=== PATIENT | male | born 1945 | race Caucasian/White ===

== ENCOUNTER 2017-03-31 21:00 | Inpatient (IN) | payer MEDICARE ==
[~2017-03-31] VITALS: Ht 165.1 cm; Wt 81.0 kg
--- NOTE | ~2017-03-31 | CON ---
PATIENT'S NAME: MAT NGUYEN [facility] AGE: 71 Y [address] ROOM: [place] [address] LOCATION: GPCU ADMIT DATE: 03/31/2017 Consultation DISCHARGE DATE: FAMILY PHYSICIAN: Nanda Hampton MD ATTENDING PHYSICIAN: LEDY PAREDES DATE OF CONSULTATION: 04/07/2017 REFERRING PHYSICIAN: STEPH KELLER MD REASON FOR CONSULTATION: 19 mm nodule in the left lung base. HISTORY OF PRESENT ILLNESS: A 71-year-old male with past medical history of COPD, being on home oxygen several years ago, follows up with [facility] CPAP and other oxygen needs, obstructive sleep apnea on CPAP, chronic kidney disease, congestive heart failure, diabetes, was admitted a few days before with healthcare associated pneumonia and acute on chronic hypoxic respiratory failure. He has improved symptomatically with current medical management. A CT scan of his chest showed 19 mm nodular opacity in the posterior lateral left costophrenic sulcus, it did not show any infiltrate. Pulmonary consult was called to evaluate this nodule. On further questioning, the patient stated that he had a lung biopsy done in [place] several years ago, but he does not remember it was from which side of the lung, but he definitely remembers that he was told he has scarring of his lung tissue. He has all these records with his PCP Dr. Nanda Hampton in [place]. Currently, he has not been on oxygen at home during day or during nighttime. He has been using CPAP at home regularly. REVIEW OF SYSTEMS: Respiratory: On oxygen, required CPAP for obstructive sleep apnea, denies any excessive cough, fever, sputum production, at present. CARDIOVASCULAR: Denies any excessive chest pain, palpitations, or syncope. All other systems were reviewed and negative except what is mentioned above. ALLERGIES: PLEASE SEE MAR. PAST MEDICAL HISTORY: 1. Atrial fibrillation. 2. Congestive cardiac failure. 3. COPD. 4. Obstructive sleep apnea on CPAP. 5. Chronic kidney disease. PATIENT'S NAME: MAT NGUYEN [facility] AGE: 71 Y [address] ROOM: [place] [address] LOCATION: GPCU ADMIT DATE: 03/31/2017 Consultation DISCHARGE DATE: FAMILY PHYSICIAN: Nanda Hampton MD ATTENDING PHYSICIAN: LEDY PAREDES 6. Diabetes. SOCIAL HISTORY: The patient has never smoked. 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 FAMILY HISTORY: Nothing significant. PHYSICAL EXAMINATION: VITAL SIGNS: Temperature 98.4, pulse 62, respirations 16, blood pressure 150/73, saturation 91% with 1 L of oxygen. GENERAL: In no acute distress. CHEST: Bilateral equal air entry. No rhonchi or crepitations. CARDIOVASCULAR: Regular S1, S2. No murmurs, rubs, or gallops. ABDOMEN: Soft, nontender, nondistended. Bowel sounds positive. EXTREMITIES: No edema. SKIN: Excoriations seen on bilateral lower extremities with pigmentation. LABS: ABG done on 04/04/2017, showed pH of 7.46, pCO2 47, PO2 67. CBC showed WBC 8.7, hemoglobin 12.5, hematocrit 38.5, platelet 171. CMP: Sodium 141, potassium 3.7, chloride 104, bicarb 30, BUN 30, creatinine 1.5. IMAGING: Chest x-ray on 04/04/2017 did not show any infiltrate. CT scan of chest did not show any infiltrate, showed 19 mm nodular opacity in the posterolateral left costophrenic sulcus. Spirometry showed an FEV1 was 1.54 L, 60% of predicted which is low; FVC was 2.11 L, 60% which is low; FEV1/FVC was 72%, which is normal. This suggests possible restrictive changes. Further assessment with measurement of lung volumes was recommended with a full PFT and there was no evidence of significant bronchodilator response. PROBLEM LIST: 1. Acute on chronic hypoxic respiratory failure. 2. COPD exacerbation. 3. Pulmonary nodule. 4. Restrictive changes on spirometry. PATIENT'S NAME: MAT NGUYEN [facility] AGE: 71 Y [address] ROOM: [place] [address] [facility] ADMIT DATE: 03/31/2017 Consultation DISCHARGE DATE: FAMILY PHYSICIAN: Nanda Hampton MD ATTENDING PHYSICIAN: LEDY PAREDES 5. Obstructive sleep apnea on CPAP. PLAN: 1. The patient states he had lung biopsy several years ago in [place], does not remember from which side of the lung, but he definitely remembers that he was told that he has scarring of his lung tissue. We will try to obtain all the medical records from Dr. Nanda Hampton, his PCP, at [place] before scheduling any further imaging. 2. Chronic respiratory failure. Home oxygen evaluation showed need for 1 L/min of oxygen with rest. 3. Restrictive changes in spirometry. Needs assessment of lung volumes with full PFT. 4. Obstructive sleep apnea on CPAP. He receives supplies from [place]. We will need to review the CPAP download. Thank you for consulting Pulmonary. The patient is getting discharged today, recommended to follow up in Pulmonary Clinic upon discharge within two weeks with all the medical records. MD CARTER RUIZ/mirela /[id number] d: 04/07/17 1503 t: 04/08/17 1743, CONSULTATION REPORT
--- NOTE | ~2017-03-31 | HP ---
PATIENT'S NAME: MAT NGUYEN [facility] AGE: 71 Y [address] ROOM: [address] [place], [place] [address] LOCATION: GPCU ADMIT DATE: 03/31/2017 History & Physical DISCHARGE DATE: FAMILY PHYSICIAN: Nanda Hampton MD ATTENDING PHYSICIAN: LEDY PAREDES DATE OF SERVICE: CHIEF COMPLAINT: Shortness of breath. HISTORY OF PRESENT ILLNESS: A 71-year-old gentleman with the multiple advanced comorbidities presented to the [facility] from a nursing facility after having increased shortness of breath, cough, and sputum production for past couple of days. Initially, in the morning, he presented to the primary care physician and was put on Zithromax. Later during the day, his condition got worse, and he was taken to the emergency department over there, where the chest x-ray was done, which did reveal a left-sided developing pneumonia, and he was found to be in hypoxic respiratory failure requiring 5 L of oxygen more than his usual requirements. He was transferred here because of the lack of bed availability at [place]. On my encounter, he appears comfortable, but coughing a lot without any sputum production. He says that he had been short of breath for a past couple of days and this got worse. He also reported that he fell couple of times this morning without hitting his head. He is not a reliable historian at this point. On further inquiry, he denied that he is having any chest pain, any palpitation, any headache, but did endorse he is having cough, sputum production, and have fever in the morning and he is still shaky. He denied any abdominal pain, any constipation, diarrhea, or extremity swelling. REVIEW OF SYSTEMS: All other systems reviewed and were negative except what is mentioned in the HPI. ALLERGIES: THE PATIENT DID NOT REPORT ANY MEDICAL ALLERGIES. PAST MEDICAL HISTORY: Atrial fibrillation, on oral anticoagulation; also, has a history of DVT, congestive heart failure, unknown ejection fraction, COPD, chronic respiratory failure with supplemental home oxygen, insulin-dependent diabetes mellitus, hyzdikx-et-esrlgd, hyperlipidemia, hypertension, obstructive sleep apnea, CKD, unknown stage, coronary artery disease, and also has a pacemaker. MEDICATIONS: PATIENT'S NAME: MAT NGUYEN [facility] AGE: 71 Y [address] ROOM: [address] [address] LOCATION: GPCU ADMIT DATE: 03/31/2017 History & Physical DISCHARGE DATE: FAMILY PHYSICIAN: Nanda Hampton MD ATTENDING PHYSICIAN: LEDY PAREDES Being reconciled right now. SOCIAL HISTORY: No ongoing toxic habits reported. FAMILY HISTORY: Reviewed and was unrelated to the current presenting problems. PHYSICAL EXAMINATION: VITAL SIGNS: He was satting 95% on 5 L of oxygen. Blood pressure 147/70, respiratory rate 20, and heart rate 75. GENERAL: No acute distress. Alert and oriented x2 only. HEENT: Head: Atraumatic, normocephalic. Eyes: Nonicteric. No pallor. Oropharynx: Very dry mucous membranes. CARDIOVASCULAR: S1, S2. No murmurs, gallops, or rubs. LUNGS: Scattered crackles on the left-side. No expiratory wheezes appreciated. ABDOMEN: Soft, nontender, nondistended. Bowel sounds are present. EXTREMITIES: No clubbing, cyanosis, or edema. SKIN: Left juarez superficial abrasion noted. No blemishes, scar cifuentes noted. PSYCH: Flat and low volume speech. NEURO: Cranial nerves 2 through 12 are intact. No motor or sensory deficit. MUSCULOSKELETAL: No muscle tenderness or joint swelling noted. LABORATORY DATA: Chest x-ray from the outside facility as mentioned above showed developing left lower lobe pneumonia. BNP done at outside facility showed 151, INR was therapeutic at 2.9, and procalcitonin 0.07. CBC was unremarkable. BMP was impressive for a BUN of 37 and a creatinine of 1.8. ASSESSMENT: 1. Kjvha-sw-dhkcfyt hypoxic respiratory failure. 2. Healthcare-associated pneumonia. 3. Acute kidney injury with known chronic kidney disease. 4. Congestive heart failure with unknown ejection fraction, not in acute exacerbation. 5. Insulin-dependent diabetes mellitus. 6. Acute metabolic encephalopathy. 7. Hypertension. 8. Atrial fibrillation. 9. Obstructive sleep apnea. 10. Chronic respiratory failure. 11. Chronic obstructive pulmonary disease. PLAN: PATIENT'S NAME: MAT NGUYEN [facility] AGE: 71 Y [address] ROOM: [address] [address] LOCATION: GPCU ADMIT DATE: 03/31/2017 History & Physical DISCHARGE DATE: FAMILY PHYSICIAN: Nanda Hampton MD ATTENDING PHYSICIAN: LEDY PAREDES We are going to admit this patient to inpatient at this point. Blood cultures have been drawn at the outside facility. We are going to obtain sputum cultures and urine streptococcal Legionella antigen. Given that he lives in a nursing facility, we will initially start with a broad-spectrum antibiotics including Zyvox, Zosyn, and Levaquin and deescalate as needed. He appears very dry on my physical examination and I am going to hydrate him cautiously with LR bolus of 500 and then running at 125 mL/hr. Acute kidney injury on unknown chronic kidney disease, stage 3. We will monitor the creatinine at this point and obtain urine electrolytes. We will reduce his home dose of insulin to half and monitor his blood glucose with Accu-Cheks and with sliding scale insulin. Hypertension will be monitored and once home medications are reconciled we will resume those. Atrial fibrillation appears to be controlled at this point. He is on oral anticoagulation. Interestingly, I was notified that he had history of subdural hematomas about 4 months ago, which were treated at [facility]. I will obtain the discharge summary for [facility] and hold the blood anticoagulation until we get that. His INR is therapeutic at this point at 2.9. We will continue to monitor that and resume oral anticoagulation as necessary. We will put the patient on fall and seizure precautions. DuoNebs. He continue home dose of salmeterol. Further recommendations will depend on his progress in the hospital. MD REHAN MEDEROS/maribell /[id number] D: 307 T: 740 HISTORY & PHYSICAL
--- NOTE | ~2017-03-31 | DS ---
PATIENT'S NAME: MAT NGUYEN [facility] AGE: 71 Y [address] ROOM: [place] [address] LOCATION: GPCU ADMIT DATE: 03/31/2017 Discharge Summary DISCHARGE DATE: 04/08/2017 FAMILY PHYSICIAN: Nanda Hampton MD ATTENDING PHYSICIAN: Pebbles Melo ADDENDUM: His discharge was delayed due to an increasing creatinine, went up to 2.6 yesterday, and Dr. Banks asked that we keep him here 1 extra day. We held his Lasix, creatinine is down at 2.3; so, he is discharged today with parameters unchanged from our discharge plan yesterday. MD NICANOR QUEZADA/maribell /[id number] d: 04/09/17 05 t: 04/09/17 1751, DISCHARGE SUMMARY
--- NOTE | ~2017-03-31 | PUL ---
PATIENT'S NAME: MAT NGUYEN [facility] AGE: 71 Y [address] ROOM: [place] [address] LOCATION: GPCU ADMIT DATE: 03/31/2017 Pulmonary DISCHARGE DATE: FAMILY PHYSICIAN: Nanda Hampton MD ATTENDING PHYSICIAN: LEDY PAREDES NAME OF PROCEDURE: Bedside Spirometry DATE OF PROCEDURE: April 05, 2017 TECH: ED Trevino REASON FOR EXAM: Shortness of breath PROCEDURES PERFORMED: Spirometry with bronchodilator assessment. RESULTS: Pre bronchodilator FEV1 was 1.54 liters, 60% of predicted.; post- bronchodilator FEV1 was 1.66 liters, 68% predicted. Pre bronchodilator FVC was 2.11 liters, 60% predicted; post bronchodilator FVC was 2.22 liters or 65% of predicted. FEV1/FVC was 72, 99% of predicted. This data did not change significantly after administration of bronchodilator. Flow volume loops pattern normal. PHYSICIAN INTERPRETATION: No evidence of airflow obstruction. Both FEV1 and FVC are reduced with no significant bronchodilator response. Measurement of lung volumes with full PFT will be recommended to rule out restrictive changes. MD CARTER RUIZ/perico /[id number] dtt: 04/08/17 1740 , STEPH KELLER dtd: 04/07/17 1238
--- NOTE | ~2017-03-31 | CON ---
PATIENT'S NAME: MAT NGUYEN [facility] AGE: 71 Y [address] ROOM: [id number] [place], [place] [address] LOCATION: GPCU ADMIT DATE: 03/31/2017 Consultation DISCHARGE DATE: FAMILY PHYSICIAN: Nanda Hampton MD ATTENDING PHYSICIAN: LEDY PAREDES DATE OF CONSULTATION: 04/02/2017 REFERRING PHYSICIAN: Jenni Henley MD REASON FOR CONSULTATION: [place] versus CKD and shortness of breath. HISTORY OF PRESENT ILLNESS: A 71-year-old gentleman with history of insulin-dependent diabetes; chronic atrial fibrillation, on long-term anticoagulation; diastolic heart failure; COPD; chronic respiratory failure with supplemental oxygen; obesity hypoventilation syndrome/obstructive sleep apnea; sick sinus syndrome, status post pacemaker implantation; coronary artery disease; and possible CKD of unknown stage, admitted with hypoxic respiratory failure, requiring 5 L of oxygen. Chest x-ray appears to be fairly benign, but found to have some evidence of fluid overload status on modest dose of diuretic. Creatinine on admission was 1.7 with unknown baseline. Nephrology consultation has been called for evaluation of renal insufficiency. The patient apparently is from [facility] where he had increased shortness of breath, cough, and sputum production for the last few days. He first went to his primary care physician and was started on Zithromax, but his condition got worse afterwards, went to the emergency department. Chest x-ray was done, apparently the report said there was left- sided developing pneumonia and was requiring increasing amount of oxygen, transferred to our hospital for further evaluation and management. The chest x-ray here he looks okay with some mild bibasilar atelectasis, but no significant infiltrate; however, the patient was started on Zosyn and Zyvox for possible healthcare-associated pneumonia. As mentioned above, creatinine on admission was 1.7. The patient carries a diagnosis of heart failure, but without any recent echocardiogram. An echocardiogram, which was done yesterday shows normal ejection fraction of 55%-60%, but grade 1 diastolic dysfunction. The patient also has increased JVD and bibasilar crackles along with some wheezing in bilateral lung escamilla. The patient also has some dependent edema. The patient has been started on Lasix 20 mg IV b.i.d. as per the primary care physician, we will continue for the same. During my evaluation, the patient appears to be comfortable, now oxygen requirement has gone down to 1 L. He denied any significant chest pain or palpitation. No fever or headache. The patient is still having occasional cough with sputum production. No abdominal pain, nausea, vomiting, or diarrhea. No urinary symptoms. REVIEW OF SYSTEMS: GENERAL: No fever. No chills or rigor. HEENT: No sore throat. No sinus congestion. CVS: Shortness of breath, both at rest and on exertion. No chest pain. No palpitation. RESPIRATORY: Increased cough with sputum production as mentioned in HPI. GENITOURINARY: No pain with urination. No increased frequency. No nocturia. GASTROINTESTINAL: No abdominal pain. No abdominal distention. No nausea or vomiting. NEUROLOGIC: No weakness. No seizures. SKIN: No rash. No itching. ALLERGIES: No seasonal allergy. No hayfever. ENDOCRINE: No heat intolerance. No cold intolerance. PSYCHIATRIC: No sadness. No crying spells. No history of panic attack. EXTREMITIES: Mild swelling in bilateral lower extremities. PATIENT'S NAME: MAT NGUYEN [facility] AGE: 71 Y [address] ROOM: [place] [address] [facility] ADMIT DATE: 03/31/2017 Consultation DISCHARGE DATE: FAMILY PHYSICIAN: Nanda Hampton MD ATTENDING PHYSICIAN: LEDY PAREDES PAST MEDICAL HISTORY: 1. Atrial fibrillation, on long-term anticoagulation. 2. Diastolic heart failure. 3. COPD. 4. Chronic respiratory failure with supplemental home oxygen. 5. Insulin-dependent diabetes mellitus. 6. Hyperlipidemia. 7. Hypertension. 8. Osteopenia. 9. CKD, unstaged. 10. Coronary artery disease. 11. Sick sinus syndrome, status post pacemaker implantation. PAST SURGICAL HISTORY: Had multiple cardiac catheterizations in the past. SOCIAL HISTORY: Denied smoking, alcohol, or IV drug use. FAMILY HISTORY: No significant family history of kidney disease or diabetes. MEDICATIONS: As per the chart. PHYSICAL EXAMINATION: VITAL SIGNS: Blood pressure 130s/60s, pulse 70, respiratory rate 20, saturation 96%-98% on 1 L, and temperature 97.4. GENERAL: Not in apparent distress. HEAD: Moist mucous membranes. Bilateral PERRLA, EOMI. NECK: No JVD, thyromegaly, or lymphadenopathy. CVS: S1-S2 positive. Irregular rate and rhythm. No murmurs, rubs, or gallops. CHEST: Bilateral wheeze with occasional crackles, especially in the bilateral bases. Air entry equal. ABDOMEN: Soft, nontender, nondistended. Bowel sounds present. EXTREMITIES: Peripheral pulses positive. Peripheral edema 1+. No cyanosis, clubbing, or jaundice. MUSCULOSKELETAL: No limitation of range of motion. SKIN: No pallor, cyanosis, or icterus. FLOWER PLANTER: Alert and oriented x3. No gross findings. LABORATORY DATA: WBC count 6, hemoglobin 10.3, platelets 122. Chemistry: Sodium 142, potassium 4, chloride 110, BUN 31, creatinine 1.7, glucose 184, calcium 7.4, A1c 7.5. INR 1.85.PATIENT'S NAME: MAT NGUYEN [facility] AGE: 71 Y [address] ROOM: [place] [address] LOCATION: GPCU ADMIT DATE: 03/31/2017 Consultation DISCHARGE DATE: FAMILY PHYSICIAN: Nanda Hampton MD ATTENDING PHYSICIAN: LEDY PAREDES ASSESSMENT AND PLAN: 1. Acute kidney injury on chronic kidney disease versus chronic kidney disease although we do not have a baseline creatinine or chronic kidney disease stage. The patient used to follow with Dr. Weir at [facility] in the past, now follows with Dr. Joseph. We will try to get all the records from his office. If the patient's creatinine is slightly up, then his baseline is presumably secondary to cardiorenal syndrome type 1 with decompensated diastolic heart failure. We agree with the primary team about the modest dose loop for now, strict intake and output, total fluid restriction of 1.2 L. We will check urinalysis and urine lytes including sodium, creatinine, osmolality, and urine urea to calculate FENa and FEUrea. We will do a renal panel now and daily. We will do a renal ultrasound to look at renal morphology, cortical echotexture, and corticomedullary differentiation. 2. Shortness of breath/hypoxic respiratory failure, possibly secondary to decompensated diastolic heart failure along with chronic obstructive pulmonary disease exacerbation. Diuresis as mentioned in #1. The patient was placed on antibiotic, but now primary team is deescalating slowly as chest x-ray did not show any significant infiltrate, we agreed with that. Continue current antibiotic regimen. 3. Decompensated heart failure. The patient was on Lasix 60 mg p.o. daily at home, currently set on 40 IV. We may need to adjust the diuretic dosing as necessary. 4. Atrial fibrillation, on long-term anticoagulation. INR is subtherapeutic. I will defer Coumadin management as per the primary. 5. Sick sinus syndrome, status post permanent pacemaker implantation. 6. Diabetes, type 2. Blood sugar relatively uncontrolled now, A1c is also 7.5, need stricter control of blood sugar and A1c. Defer to primary team about further management of diabetes. 7. Hypertension. Currently, blood pressure is adequately controlled. Was on Coreg at home along with Lasix 60. Continue home antihypertensive medications for now. Thank you for allowing me to participate in this patient's care. I will closely monitor the patient's progress along with you. [facility] CHELSI AMBRIZ MD /modl /[id number] CC: Ross Joseph MD d: 04/02/17 1820 t: 04/04/17 1032, CONSULTATION REPORT
--- NOTE | ~2017-03-31 | ECHO ---
Transthoracic Echocardiography Report (TTE) Demographics Patient Name MAT NGUYEN Date of Study 04/01/2017 Patient Number [id number] Visit Number [id number] Date of 1945 Room Number G6304 Accession Number [id number] Gender Male Age 71 year(s) Referring Memo Vee MD Rn Clinical Sherlyn Pinzon [facility], Physician Lory Arteaga RVT LORY ARTEAGA Physician Interpreting Josse Hathaway [employer] Cutter Machine Physician A MD Supervising Ordering Physician Lory Arteaga MD/MLP Nurse Stress Field Consultant Conclusions Summary The estimated left ventricular ejection fraction is 50-55% with the use of Definity. Mild to moderate concentric left ventricular hypertrophy. Diastolic assessment reveals Grade I diastolic dysfunction. Mild to moderately dilated right ventricle. Device lead noted in the right ventricle. Mild mitral regurgitation by color Doppler. Mild mitral annular calcification. Mild tricuspid regurgitation by color Doppler. The tricuspid valve is not well visualized. Procedure Type of Study TTE procedure:2D Echocardiogram. Procedure Date Date: 04/01/2017 Start: 02:13 PM Study Location: Inpatient Portable Technical Quality: Limited visualization due to lung interference. Indications:Dyspnea/SOB. Appropriate Use Criteria: 9 Patient Status: Routine Contrast Medium: Definity. Amount - 2 ml Rhythm: Within normal limits HR: 65 bpm BP: 127/58 mmHg M-Mode/2D Measurements LV Diastolic Dimension: 4.6 cm LV Systolic Dimension: 3.39 cm LV Septum Diastolic: 1.65 cm LV PW Diastolic: 1.54 cm AO Root Dimension: 2.8 cm Cardiac Output: 5.15 l/min LA Dimension: 3.31 cm LVOT: 2.1 cm IVC Inspiration: 0.7 cm LVOT VTI: 22.9 cm RV Base: 4.31 cm LV Stroke volume: 79.28 ml RV Length: 6.18 cm TAPSE: 2.14 cm Doppler Measurements AV Peak Velocity: 1.45 m/s MV Peak E-Wave: 0.71 m/s AV Peak Gradient: 8.41 mmHg MV Peak A-Wave: 1.02 m/s AV Mean Gradient: 4 mmHg MV E/A Ratio: 0.7 LVOT Peak Velocity: 0.87 m/s MV P1/2t: 116 msec TR Gradient:30.03 mmHg PV Peak Velocity: 1.45 m/s Estimated RAP:3 mmHg PV Peak Gradient: 8.41 mmHg Estimated RVSP: 33 mmHg Estimated PASP: 33.03 mmHg E' Septal Velocity: 0.05 m/s A' Septal Velocity: 0.11 m/s E' Lateral Velocity: 0.06 m/s A' Lateral Velocity: 0.12 m/s MV E/E' Ratio: 13.5 Findings Left Ventricle The estimated left ventricular ejection fraction is 50-55%. Mild to moderate concentric left ventricular hypertrophy. Diastolic assessment reveals Grad Apical hypokinesis in some views Right Ventricle Mild to moderately dilated right ventricle. Device lead noted in the right ventricle. Left Atrium The left atrium is mildly dilated. Right Atrium Normal right atrial size. Mitral Valve Mild mitral regurgitation by color Doppler. Mild mitral annular calcification. Aortic Valve The aortic valve is mildly sclerotic. Tricuspid Valve Mild tricuspid regurgitation by color Doppler. The tricuspid valve is not well visualized. Pulmonic Valve The pulmonic valve is not well visualized. Pericardial Effusion No evidence of pericardial effusion. Miscellaneous Visualized portions of the aortic root and ascending aorta appear normal in size. Pleural Effusion No evidence of pleural effusion. Signature dtt: Rachelle Loaiza dtd: 04/01/17 1413 Physician Self Edit
--- NOTE | ~2017-03-31 | DS ---
PATIENT'S NAME: MAT NGUYEN [facility] AGE: 71 Y [address] ROOM: G6304 [place], [place] [address] LOCATION: GPCU ADMIT DATE: 03/31/2017 Discharge Summary DISCHARGE DATE: FAMILY PHYSICIAN: Nanda Hampton MD ATTENDING PHYSICIAN: Pebbles Melo DISCHARGE DIAGNOSES: 1. Exacerbation of chronic obstructive pulmonary disease. 2. Acute on chronic hypoxic respiratory failure associated with his COPD exacerbation. 3. Acute on chronic diastolic congestive heart failure. 4. 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 5. Acute kidney injury on chronic renal failure. 6. Atrial fibrillation, on long-term anticoagulation. 7. Diabetes mellitus type 2, under fair control. REASON FOR ADMISSION: He is admitted with hypoxia and dyspnea, required 5 L of oxygen at that time. There was at least initially evidence of some fluid overload due to his diastolic congestive heart failure. Latest CT showed an indeterminate nodular opacity in the posterior lateral left base. There is evidence that he has had a biopsy previously. We do not know if it is for this lesion, but Dr. Rivas felt that she could wait and follow up on this as an outpatient when she had those records and could make a better determination as to the acuity of this mass. LABORATORY STUDIES: Blood sugars have been anywhere from 107 to 429, so very labile. His last white count was 87 with normal hemoglobin and platelets. The last laboratory for chemistry showed creatinine 2.3 with a BUN 62, sodium 140, potassium 3.8. Chloride and CO2 were normal. Pro-time from yesterday showed INR therapeutic at 2.02 and GFR yesterday was 27. HOSPITAL COURSE: Hospital course has been one of gradual improvement. It has been difficult adjusting his diuretic dose and his creatinine has been up and down, but Dr. Rivas will follow that on an outpatient basis. He had labs scheduled for this morning, but those results are pending. Reference is made to them when they show. Diet will be ad felix. Meds will be per nursing med recon. I have asked Nephrology to adjust the dosage of his Lasix to their liking. Activity will be ad felix. He is going home on oxygen as he continues to need 1 L. We have tried to take him off oxygen a couple of times and he goes into the 70s or 80s for SaO2. Followup will be initially with Dr. Rivas from Pulmonary, or Wednesday, April 22 or . He will need follow up with his primary physician in PATIENT'S NAME: MAT NGUYEN [facility] AGE: 71 Y [address] ROOM: G6304 [place], [place] [address] [facility] ADMIT DATE: 03/31/2017 Discharge Summary DISCHARGE DATE: FAMILY PHYSICIAN: Nanda Hampton MD ATTENDING PHYSICIAN: Pebbles Melo in 1 week to check INR and kidney function at that time. Note that on physical exam today, he still had occasional wheezes, but his heart was regular. Belly was soft. He was smiling and ready to go home. Discharge time was greater than 30 minutes. MD NICANOR QUEZADA/modoumou /[id number] d: 04/08/17 0638 t: 04/09/17 1749, DISCHARGE SUMMARY
[2017-03-31] MEDS ORDERED: LIPITOR80 MG PO (22:09)
[2017-03-31] MEDS ORDERED: PROVENTIL OR V6.7 GM INH (22:09)
[2017-03-31] MEDS ORDERED: ATROPINE 0.01%-10 ML OPHTH (22:10)
[2017-03-31] MEDS ORDERED: ZITHROMAX250 MG PO (22:11)
[2017-03-31] MEDS ORDERED: DEPAKOTE DELAY500 MG PO (22:12)
[2017-03-31] MEDS ORDERED: COREG25 MG PO (22:12)
[2017-03-31] MEDS ORDERED: SYMBICORT 16010.2 GM INH (22:12)
[2017-03-31] MEDS ORDERED: RAZADYNE4 MG PO (22:13)
[2017-03-31] MEDS ORDERED: GUAIFENESIN400 MG PO (22:14)
[2017-03-31] MEDS ORDERED: IMDUR60 MG PO (22:15)
[2017-03-31] MEDS ORDERED: LANTUS (IN100 UNIT/M SUB-Q (22:16)
[2017-03-31] MEDS ORDERED: KEPPRA500 MG PO (22:16)
[2017-03-31] MEDS ORDERED: LASIX40 MG PO (22:18)
[2017-03-31] MEDS ORDERED: LEVOTHROID (SY50 MCG PO (22:18)
[2017-03-31] MEDS ORDERED: NOVOLOG100 UNIT/M SUB-Q (22:19)
[2017-03-31] MEDS ORDERED: NITROSTAT0.4 MG SL (22:19)
[2017-03-31] MEDS ORDERED: PRED FORTE 1%5 ML OPHTH (22:20)
[2017-03-31] MEDS ORDERED: PROTONIX40 MG PO (22:20)
[2017-03-31] MEDS ORDERED: SPIRIVA HANDIHA1 KIT INH (22:21)
[2017-03-31] MEDS ORDERED: ZOLOFT100 MG PO (22:21)
[2017-03-31] MEDS ORDERED: RANEXA ER500 MG PO (22:21)
[2017-03-31] MEDS ORDERED: VITAMIN B-12500 MCG PO (22:22)
[2017-03-31] MEDS ORDERED: TYLENOL325 MG PO (22:22)
[2017-03-31] MEDS ORDERED: COUMADIN **IA2.5 MG PO ×2 (22:23→22:24)
--- NOTE | 2017-03-31 23:38 | NUR ---
Patient is direct admit from [place]. History of Dementia, COPD, Brain Bleed, Pacemaker, HTN, AFIB, Sleep Apnea, and recent falls. Patient was kemi in to [facility] ER by with increased SOB. Had fallen once on Wednesday and once today prior to ER visit. Upon arrival to ER, patient had fever of 101.8, BNP of 151, requiring 5L NC, and found to have pneumonia in left lower lobe. Received 750ml Levofloxacin, 2L Normal Saline, and Albuterol treatment in [facility] before being transfered to [facility]. Patient arrived at 2145 per ambulance. Vitals were: HR 67, Temp 98.3, RR 24, BP 141/58, MAP 84, O2 96% 5L NC. Dr. Melo admitting.
[2017-04-01 03:42] LABS: BASOPHIL % 0.2 %; EOSINOPHIL % 0.3 %; HEMATOCRIT 32.1 % (37.0-53.0); HEMOGLOBIN 10.3 g/dL (11.0-16.0); IMMATURE GRANULOCYTE % 0.5 %; LYMPHOCYTE # 0.6 K/uL (0.8-4.0); LYMPHOCYTE % 9.3 %; MCH 32.7 pg (27.0-34.0); MCHC 32.1 gm/dL (32.0-36.5); MCV 101.9 fl (83.0-98.0); MONOCYTE # 0.9 K/uL (0.0-1.0); MONOCYTE % 14.2 %; MPV 9.7 fl (9.4-12.4); NEUTROPHIL # (ANC) 4.6 K/uL (1.4-9.0); NEUTROPHIL % 75.5 %; NRBC % 0 /100WBC (0-0.00); PLATELET COUNT 122 K/uL (150-450); RBC 3.15 M/uL (3.50-5.50); RDW-CV 15.9 % (11.9-14.6)
[2017-04-01 03:54] LABS: INR - (THERAPEUTIC) 2.65 (0.92-1.07); PROTIME 28.1 SECONDS (9.8-11.4)
[2017-04-01 03:59] LABS: CREATININE 1.7 mg/dL (0.6-1.3)
[2017-04-01 04:00] LABS: CALCIUM 7.4 mg/dL (8.5-10.5)
[2017-04-01] MEDS ORDERED: ZYLOPRIM300 MG PO (11:22)
[2017-04-01] MEDS ORDERED: ARTIFICIAL TEAR15 ML OPHTH (11:24)
[2017-04-01] MEDS ORDERED: CARAFATE1 GM PO (11:35)
[2017-04-01] MEDS ORDERED: GLUCOPHAGE XR500 M1 PO (11:40)
--- NOTE | 2017-04-01 11:40 | NUR ---
Introduced self and role of care management to pt. He lives in [place] with his and has 2 sons 17 and 23 year old. He states he uses a walker at home and the steps his has to help him get up. He states once he is up he does well and can fix his own lunch. He showers but likes to be around or one of the son's. He states he is is setting up his meds now and he just finished with home health care. I did ask about oxygen and he does not wear it at home. He plans on home when ready for discharge and denies the need for hhc at this time. WIll continue to follow.
--- NOTE | 2017-04-01 11:41 | NUR ---
PT SCREENED D/T (+) MST. PT STATES HIS APPETITE IS GOOD, ATE 100% AT BF. DOES NOT RECALL LOSING ANY WT RECENTLY. BMI IN OBESE RANGE. BASED ON CURRENT DATA, NO NUTRITION-RELATED DIAGNOSIS IDENTIFIED. WILL ASSIST NEEDED.
--- NOTE | 2017-04-01 18:30 | NUR ---
Significant Event: ivf saline locked. Echo done with diffinity today. PT OT work with pt, up halls. [address] done of head and CXR done. PT here this afternoon, needs to talk to pharmacy on home meds, she will be in am. IRis cushion to chair. WOC here today. Pt has hacky, wheezy cough alot. Pt says he cant cough it up. Need sputum cx. Follow up:
[2017-04-02 04:04] LABS: INR - (THERAPEUTIC) 1.85 (0.92-1.07); PROTIME 19.5 SECONDS (9.8-11.4)
--- NOTE | 2017-04-02 04:53 | NUR ---
Significant event: A/O x 3. Up with 1 assist and walker. Uses urinal to void and commode for bowel movement. AC/HS Accu Checks. Mild Scliding Scale. Audible wheezes. 1L nc at noc can be without oxygen during the day. No c/o Pain throughout the night.
--- NOTE | 2017-04-02 10:44 | NUR ---
[facility]abetes Center note: Current A1C is 7.5 %, discussed this result with the patient. Spouse in room with patient and she answers most of the questions that CDE asks them regarding his insulin regimen at home. Patient [facility] Diabetes Management Booklet provided and Diabetes Survival Skills Checklist, asked them to complete and CDE will check back with them later today to address any educational needs.
[2017-04-02] MEDS ORDERED: ZOLOFT25 MG PO (11:17)
[2017-04-02 11:26] LABS: ALBUMIN 2.2 gm/dL (3.5-5.0); CALCIUM 7.9 mg/dL (8.5-10.5); CREATININE 1.9 mg/dL (0.6-1.3); PHOSPHORUS 2.6 mg/dL (2.5-4.9)
[2017-04-02 11:38] LABS: ANION GAP 13.6 (10.0-19.0); POTASSIUM 4.6 mMol/L (3.7-5.1)
[2017-04-02 13:21] LABS: BILIRUBIN URINE NEGATIVE (NEGATIVE); BLOOD URINE NEGATIVE /UL (NEGATIVE); COLOR URINE STRAW (YELLOW); GLUCOSE URINE 1000 mg/dL (NEGATIVE); KETONE URINE NEGATIVE (NEGATIVE); LEUKOCYTES URINE NEGATIVE /UL (NEGATIVE); NITRITE URINE NEGATIVE (NEGATIVE); PH URINE 6.5 (4.0-8.0); PROTEIN URINE NEGATIVE (NEGATIVE); SPEC GRAVITY URINE 1.005 (1.003-1.035); TURBIDITY URINE CLEAR (CLEAR); UROBILINOGEN URINE NORMAL (NORMAL)
--- NOTE | 2017-04-02 14:58 | NUR ---
Diabetes center note: 1400 Spouse and patient have completed the Diabetes Survival Skills Assessment form and there are no gaps identified. They states having all of the supplies they need at home and [facility] for [facility]. Current A1C 7.5 %
--- NOTE | 2017-04-02 16:38 | NUR ---
Significant Event: Follow up: PATIENT ALERT AND ORIENTED THIS SHIFT. CAPITAN GRANDE BAND. VOIDS VIA URINAL. WILL PUSH CALL LIGHT AFTER VOID. 1200ML FLUID RESTRICTION. VERY COMPLIANT WITH THIS. IV LASIX GIVEN X2 THIS SHIFT. O2SATS IN 90'S ON 1L. ACCU CHECKS AC/HS. IVS SL RIGHT HAND AND LEFT AC. 1 ASSIST WHEN AMBULATING. BED BATH, SHAVE AND ORAL CARE DONE THIS SHIFT. COMPLIANT WITH ALL CARES THIS SHIFT.
[2017-04-03 04:18] LABS: ALBUMIN 2.3 gm/dL (3.5-5.0); ANION GAP 12.9 (10.0-19.0); CREATININE 1.6 mg/dL (0.6-1.3); PHOSPHORUS 2.8 mg/dL (2.5-4.9); POTASSIUM 3.9 mMol/L (3.7-5.1)
[2017-04-03 04:32] LABS: PROTIME 15.1 SECONDS (9.8-11.4)
[2017-04-03 04:33] LABS: INR - (THERAPEUTIC) 1.43 (0.92-1.07)
--- NOTE | 2017-04-03 04:51 | NUR ---
Patient A/Ox3. VSS on 1L NC. Up one assist with a walker. Lungs course, cough, still need sputum. Bowel sounds present, 1lg BM, eating well. IV to LT hand and RT AC saline locked. Open sore to RT juarez. No pain.
--- NOTE | 2017-04-03 16:45 | NUR ---
Significant Event: Follow up: ALERT AND ORIENTED X3. LUNG SOUNDS COARSE/WHEEZY. BOWEL SOUNDS PRESENT. ON ROOM AIR THIS SHIFT, MAINTAINED O2 SATS IN THE MID 90s. AFEBRILE. UP TO HAVE BM MULTIPLE TIME THIS SHIFT. CHAIR ALARM ON..PATIENT GETS UP TO HURRY TO THE TOILET. VERY COMPLIANT WITH FLUID RESTRICTION. 1 ASSIST WITH AMBULATION. STILL UNABLE TO OBTAIN SPUTUM SAMPLE. COUGH SOUNDS WET BUT WONT COME OUT. BLOOD GLUCOSE 349 @1700. COMPLIANT WITH ALL CARES THIS SHIFT.
[2017-04-04 03:47] LABS: INR - (THERAPEUTIC) 1.45 (0.92-1.07); PROTIME 15.3 SECONDS (9.8-11.4)
--- NOTE | 2017-04-04 05:15 | NUR ---
Patient A/OX3. VSS on RA. One assist with walker, alarms. Lungs course, wheezes at times, harsh cough. Bowel sounds present, loose BM. IVs saline locked. Need stool and sputum sample. No pain.
[2017-04-04 10:46] LABS: ANION GAP 12.2 (10.0-19.0); CREATININE 2.1 mg/dL (0.6-1.3)
[2017-04-04 10:47] LABS: POTASSIUM 4.2 mMol/L (3.7-5.1)
--- NOTE | 2017-04-04 15:59 | NUR ---
Significant Event: A/O. VSS on 1L/NC. Denies pain. Incontinent of bladder at times. Up with 1 assist. 2V CXR today. LS coarse and crackles. Follow up: cont plan of care - possibly dismiss tomorrow if able to wean to RA.
--- NOTE | 2017-04-05 04:09 | NUR ---
Patient A/Ox3 but can be forgetful. [place]. VSS on 1L NC. One assist w/walker&gaitbelt. Lungs course/wheezes. Bowel sounds present. RT juarez has skin tear closed and TEMO. IV to Lt hand and RT AC saline locked. Possible home today if weaned of oxygen. NO pain. AC/NGUYEN accu check have been high, increased SSI to moderate.
[2017-04-05 04:35] LABS: BASOPHIL % 0.5 %; HEMATOCRIT 38.5 % (37.0-53.0); HEMOGLOBIN 12.5 g/dL (11.0-16.0); IMMATURE GRANULOCYTE # 0.2 K/uL (0.0-0.3); IMMATURE GRANULOCYTE % 1.8 %; LYMPHOCYTE % 11.9 %; MCH 32.1 pg (27.0-34.0); MCHC 32.5 gm/dL (32.0-36.5); MCV 98.7 fl (83.0-98.0); MONOCYTE # 0.9 K/uL (0.0-1.0); MONOCYTE % 10.2 %; MPV 9.3 fl (9.4-12.4); NEUTROPHIL # (ANC) 6.6 K/uL (1.4-9.0); NEUTROPHIL % 75.6 %; NRBC % 0 /100WBC (0-0.00); RDW-CV 15.7 % (11.9-14.6); WBC 8.7 K/uL (4.0-11.0)
[2017-04-05 04:40] LABS: PLATELET COUNT 171 K/uL (150-450)
[2017-04-05 04:41] LABS: INR - (THERAPEUTIC) 1.71 (0.92-1.07)
[2017-04-05 04:54] LABS: ALBUMIN 2.6 gm/dL (3.5-5.0); ANION GAP 13.6 (10.0-19.0); CALCIUM 8.9 mg/dL (8.5-10.5); CREATININE 1.9 mg/dL (0.6-1.3); PHOSPHORUS 4.2 mg/dL (2.5-4.9); POTASSIUM 3.6 mMol/L (3.7-5.1)
--- NOTE | 2017-04-05 11:03 | NUR ---
PT SCREENED D/T LOS. EST NEEDS: 1500 KCALS, 92 GM PROTEIN, 1200 ML FLUID RESTRICTION. INTAKE USUALLY 100%. POSSIBLE DISMISSAL TODAY. BASED ON CURRENT DATA, NO NUTRITION-RELATED DIAGNOSIS IDENTIFIED. WILL F/U NEEDED.
--- NOTE | 2017-04-05 15:39 | NUR ---
Social visit with pt today. He states he is doing well at this time. Md here at this time to see pt.
--- NOTE | 2017-04-05 19:18 | NUR ---
Significant event: A&Ox3. HR 60-80's. SBP 140-150's. Lungs coarse, wheezes. Tried to wean O2 this AM, O2 sats dropped to 78%. IV solu-medrol given this shift, to have PO prednisone, and duonebs. Have patient down to 1 Liter of O2 currently. Up in halls SBA. Follow UP: Wean off oxygen.
--- NOTE | 2017-04-06 05:07 | NUR ---
Significant Event: PT A/O X3. SBP 120-140 HR 60-70 SATS 92% ON 1L NC. PRE AND POST PFT, RESULTS IN CHART. PT CHECKED FOR C-DIFF, NEGATIVE. PT HAD GUOP 1050ML FLUID RESTRICTION OF 1200. IV RT AC AND LEFT WRIST SL. PT 1 ASSIST. PT BLOOD SUGAR 365 ON SSI MODERATE. Follow up: FOLLOW CARE PLAN.
[2017-04-06 05:38] LABS: INR - (THERAPEUTIC) 2.02 (0.92-1.07); PROTIME 21.4 SECONDS (9.8-11.4)
[2017-04-06 05:43] LABS: ALBUMIN 2.7 gm/dL (3.5-5.0); ANION GAP 13.8 (10.0-19.0); CALCIUM 8.8 mg/dL (8.5-10.5); CREATININE 2.3 mg/dL (0.6-1.3); PHOSPHORUS 4.6 mg/dL (2.5-4.9); POTASSIUM 3.8 mMol/L (3.7-5.1)
--- NOTE | 2017-04-06 14:36 | NUR ---
Social visit with pt today. He is doing well and still planning on home and denies any needs. I did review IMM.
--- NOTE | 2017-04-06 18:07 | NUR ---
PATIENT HAD CT CHEST, IND. SHORTNESS OF BREATH. CREATININE INCREASED, DR ORDERED HOLD FLUID RESTRICTION TODAY ONLY, RESUME TOMORROW. CALLED I/O'S AT 16:00 TO RENAL, NO NEW ORDERS AT THAT TIME. RA TO 1L THIS SHIFT, CONTINUOUS MONITORING OF SATS.
--- NOTE | 2017-04-07 04:54 | NUR ---
Significant Event: PT A/O X3 SBP 110-120 HR 60'S SATS AT BEGINNING OF SHIFT 90% ON RA. PT SATS DROPPED AT HS TO 86-90 2L NC APPLIED. LEVAQUIN GIVEN IV. GOOD UOP 1600. BLOOD SUGAR AFTER A SNACK WSA 465, HOSPITALIST NOTIFIED, GAVE 15 UNITS PER AGGRESIVE SLIDDING SCALE 5 UNITS OF LEVEMIR GIVEN. AN INCREASE TODAY TO 25 LEVEMIR. Follow up: FOLLOW CARE PLAN
[2017-04-07 15:22] LABS: INR - (THERAPEUTIC) 3.27 (0.92-1.07); PROTIME 34.7 SECONDS (9.8-11.4)
[2017-04-07 15:40] LABS: CALCIUM 8.8 mg/dL (8.5-10.5)
[2017-04-07 15:41] LABS: ALBUMIN 2.8 gm/dL (3.5-5.0); CREATININE 2.6 mg/dL (0.6-1.3); PHOSPHORUS 3.3 mg/dL (2.5-4.9)
--- NOTE | 2017-04-07 15:45 | NUR ---
Significant event: A&Ox3, forgetful. VSS. On 1L O2, to have O2 at home, [facility]. Lungs coarse, clear with cough. Wheezes at times. Bowel sounds active. Follow Up: Waiting for orders from renal on lasix. To D/C home today.
[2017-04-08 04:11] LABS: PROTIME 44.5 SECONDS (9.8-11.4)
[2017-04-08 04:12] LABS: INR - (THERAPEUTIC) 4.18 (0.92-1.07)
[2017-04-08 04:16] LABS: ALBUMIN 2.5 gm/dL (3.5-5.0); ANION GAP 13.8 (10.0-19.0); CALCIUM 8.3 mg/dL (8.5-10.5); CREATININE 2.3 mg/dL (0.6-1.3); PHOSPHORUS 3.9 mg/dL (2.5-4.9); POTASSIUM 3.8 mMol/L (3.7-5.1)
--- NOTE | 2017-04-08 06:51 | NUR ---
Significant Event: Patient is alert/oriented x3, forgetful at times. Vital signs are stable. Continues on 1L O2. Denies any pain. Creatinine this AM is 2.3 and INR is 4.18. Follow up: Possible dismissal to home today.
[2017-04-08] MEDS ORDERED: LEVAQUIN 250 M250 MG PO (13:58)
[2017-04-08] MEDS ORDERED: DELTASONE20 M1 PO (13:59)
--- NOTE | 2017-04-08 16:12 | NUR ---
Patient dismissed to home, patient taken out to private auto via wheelchair. Educated patient on new medication list, oxygen use at home, follow up appointments, prescriptions, CHF. VSS. Patient educated on need to draw protime lab 04/09/17 prior to resuming coumadin, and to hold lasix for 2 days. Also educated on this information. Denies shortness of breath, pain, dizziness.
== END 2017-04-08 15:30 | disposition disaster alternative care site (69) | DRG 190 ==
LOC: GPCU 21:00
PROVIDERS: Family Medicine; Internal Medicine Nephrology; Nurse Practitioner; ADMIT Internal Medicine
DX: J44.0 Chronic obstructive pulmonary disease with (acute) lower respiratory infection (principal); J96.21 Acute and chronic respiratory failure with hypoxia; J18.9 Pneumonia, unspecified organism; G93.41 Metabolic encephalopathy; I50.33 Acute on chronic diastolic (congestive) heart failure; N17.9 Acute kidney failure, unspecified; I13.0 Hypertensive heart and chronic kidney disease with heart failure and stage 1 through stage 4 chronic kidney disease, or unspecified chronic kidney disease; E11.22 Type 2 diabetes mellitus with diabetic chronic kidney disease; E11.65 Type 2 diabetes mellitus with hyperglycemia; J44.1 Chronic obstructive pulmonary disease with (acute) exacerbation; R91.8 Other nonspecific abnormal finding of lung field; I48.91 Unspecified atrial fibrillation; Z79.01 Long term (current) use of anticoagulants; Z86.718 Personal history of other venous thrombosis and embolism; E78.5 Hyperlipidemia, unspecified; Z99.81 Dependence on supplemental oxygen; G47.33 Obstructive sleep apnea (adult) (pediatric); Z95.0 Presence of cardiac pacemaker; I25.10 Atherosclerotic heart disease of native coronary artery without angina pectoris; E66.9 Obesity, unspecified; Z68.31 Body mass index [BMI] 31.0-31.9, adult; Z91.81 History of falling; N18.3 Chronic kidney disease, stage 3 (moderate); Z79.4 Long term (current) use of insulin
CPT/HCPCS: G0237; G0424; J1650; J1940; J1956; J2020; J2543; J2930; J7030; J7050; J7120; J7512; Q9957